=== PATIENT | female | born 1970 | race Two or more races ===

== ENCOUNTER 2024-03-11 11:53 | Inpatient (IN) | payer MEDICAID, OTHER ==
[~2024-03-11] VITALS: Ht 154.9 cm; Wt 62.1 kg
[2024-03-11 13:28] LABS: Basophils # (auto) 0.1 10 ^3/uL (0-0.2); Basophils % (auto) 0.9 % (0.0-2.0); Eosinophils # (auto) 0.2 10 ^3/uL (0-0.8); Eosinophils % (auto) 3.5 % (0.0-7.0); Hematocrit 39.7 % (36.0-46.0); Hemoglobin 13.1 g/dL (12.2-16.2); Lymphocytes # (auto) 0.9 10 ^3/uL (0.4-5.4); Lymphocytes % (auto) 16.3 % (10.0-50.0); Mean Corpuscular Hemoglobin 29.4 pg (28.0-32.0); Mean Corpuscular Volume 89.2 fL (80.0-100.0); Monocytes # (auto) 0.5 10 ^3/uL (0-1.3); Monocytes % (auto) 9.1 % (0.0-12.0); Neutrophils % (auto) 70.2 % (37.0-80.0); Nucleated Red Blood Cells % 0.1 %; Platelet Count (auto) 149 10^3/uL (140-450); Red Blood Cells 4.45 10^6/uL (4.0-5.20); Red Cell Distribution Width 14.6 % (11.8-14.3); White Blood Cell 5.7 10^3/uL (4.4-10.8)
[2024-03-11 13:39] LABS: Chloride 108 mmol/L (98-107); Potassium 4.1 mmol/L (3.5-5.1); Sodium 141 mmol/L (136-145)
[2024-03-11 13:40] LABS: Anion Gap 8 (5-15); Calcium 10.1 mg/dL (8.7-10.4); Carbon Dioxide 25 mmol/L (20-31)
[2024-03-11 13:45] LABS: BUN/Creatinine Ratio 14.1 (10.0-20.0); Blood Urea Nitrogen 13 mg/dL (9-23); Glucose 92 mg/dL (74-106)
[2024-03-11 14:58] LABS: Urine Bacteria None Seen /hpf (None Seen)
[2024-03-11 15:22] LABS: Urine Blood Negative /uL (Negative); Urine Clarity Clear (Clear); Urine Color Colorless (Yellow); Urine Protein, UAD 1+ (Negative); Urine Specific Gravity 1.005 (1.001-1.035); Urine Urobilinogen Normal (Negative); Urine WBC <1 /hpf (0 - 5); Urine pH 6.5 (5.0-9.0)
[2024-03-11] MEDS: FUROSEMIDE 40 MG/4 ML VIAL IV ONE (16:14)
[2024-03-11] MEDS ORDERED: ONDANSETRON HCL 4 MG/2 ML VIAL IV PRN (21:45)
[2024-03-11] MEDS ORDERED: ACETAMINOPHEN 325 MG TAB PO PRN (21:45)
[2024-03-11] MEDS ORDERED: TEMAZEPAM 15 MG CAP PO PRN (21:45)
[2024-03-11 22:05] VITALS: PULSE 78; RESP 16; O2SAT 98
[2024-03-12] VITALS (9 sets, daily range): BP systolic 103–147; BP diastolic 45–75; PULSE 70–90; RESP 16–21; TEMP 97.4–98.6; O2SAT 93–99
[2024-03-12] MEDS: ALBUMIN 25% 50 ML IV ONE (00:27)
[2024-03-12] MEDS ORDERED: METO-289 PO (00:35)
[2024-03-12] MEDS ORDERED: LOSA-534 PO (00:35)
[2024-03-12] MEDS ORDERED: MULT-1054 PO (00:35)
[2024-03-12] MEDS ORDERED: ALEN70TA74 PO (00:35)
[2024-03-12] MEDS ORDERED: ANAS1TAB52 PO (00:35)
[2024-03-12] MEDS: hydrALAZINE HCL 20 MG/ML VL IV ONE (01:37)
[2024-03-12] MEDS: HYDROcodone-ACET 5/325MG TAB PO PRN (09:10)
[2024-03-12] MEDS: METOPROLOL SUCCINATE XL 50 MG TAB PO SCH (09:10)
[2024-03-12 09:31] LABS: Chloride 106 mmol/L (98-107); Sodium 141 mmol/L (136-145)
[2024-03-12 09:32] LABS: Anion Gap 7 (5-15); Calcium 10.1 mg/dL (8.7-10.4); Carbon Dioxide 28 mmol/L (20-31)
[2024-03-12 09:37] LABS: Blood Urea Nitrogen 9 mg/dL (9-23); Glucose 151 mg/dL (74-106)
[2024-03-12 10:17] LABS: Basophils # (auto) 0 10 ^3/uL (0-0.2); Basophils % (auto) 0.8 % (0.0-2.0); Eosinophils # (auto) 0.1 10 ^3/uL (0-0.8); Eosinophils % (auto) 1.9 % (0.0-7.0); Hemoglobin 13.8 g/dL (12.2-16.2); Lymphocytes # (auto) 0.8 10 ^3/uL (0.4-5.4); Lymphocytes % (auto) 13.6 % (10.0-50.0); Mean Corpuscular Hemoglobin 29.1 pg (28.0-32.0); Mean Corpuscular Volume 88.2 fL (80.0-100.0); Monocytes # (auto) 0.4 10 ^3/uL (0-1.3); Monocytes % (auto) 6.9 % (0.0-12.0); Neutrophils # (auto) 4.6 10 ^3/uL (1.6-8.6); Neutrophils % (auto) 76.8 % (37.0-80.0); Nucleated Red Blood Cells % 0.1 %; Platelet Count (auto) 180 10^3/uL (140-450); Red Blood Cells 4.76 10^6/uL (4.0-5.20); Red Cell Distribution Width 14.8 % (11.8-14.3)
[2024-03-12] MEDS: FUROSEMIDE 40 MG TAB PO SCH (10:19)
[2024-03-12] MEDS: ENOXAPARIN SOD 40 MG/0.4 ML SYRINGE SC SCH (10:49)
[2024-03-13] VITALS (8 sets, daily range): BP systolic 109–149; BP diastolic 43–67; PULSE 62–84; RESP 14–20; TEMP 97–97.9; O2SAT 90–100
[2024-03-14 01:00] VITALS: BP 137/71; PULSE 85; RESP 20; TEMP 97.5; O2SAT 94
[2024-03-14 05:00] VITALS: BP 120/91; PULSE 72; RESP 20; TEMP 97.6; O2SAT 98
[2024-03-14 08:00] VITALS: PULSE 65; RESP 18; O2SAT 97
[2024-03-14 09:00] VITALS: BP 149/60; PULSE 79; RESP 22; TEMP 97.9; O2SAT 97
[2024-03-14] MEDS ORDERED: LEVO500T91 PO (11:08)
[2024-03-14 13:00] VITALS: BP 118/57; PULSE 70; RESP 22; TEMP 97.7; O2SAT 97
== END 2024-03-14 16:15 | disposition home or self-care (01) | DRG 139 ==
LOC: ER 11:53 → WEST WING 21:39 → OVERFLOW 21:39 → WEST WING 23:28
PROVIDERS: ADMIT Nurse Practitioner; ATTEND Family Medicine
DX: J12.9 Viral pneumonia, unspecified (principal); I11.0 Hypertensive heart disease with heart failure; I50.32 Chronic diastolic (congestive) heart failure; M81.0 Age-related osteoporosis without current pathological fracture; Z85.3 Personal history of malignant neoplasm of breast; Z85.43 Personal history of malignant neoplasm of ovary; Z92.21 Personal history of antineoplastic chemotherapy; Z90.12 Acquired absence of left breast and nipple; Z90.721 Acquired absence of ovaries, unilateral; Z79.899 Other long term (current) drug therapy
CPT/HCPCS: 36415; 71045; 71250; 80048; 81001; 83880; 84484; 85025; 93306; 93970; G0378

== ENCOUNTER 2025-04-14 10:17 | Emergency (ER) | payer MEDICAID ==
[~2025-04-14] VITALS: Ht 149.9 cm; Wt 72.2 kg
[~2025-04-14 10:17] MED LIST: ALEN70TA74 PO; ANAS1TAB52 PO; LEVO500T91 PO; LOSA-534 PO; METO-289 PO; MULT-1054 PO
--- NOTE | 2025-04-14 11:25 | ED.PDOC ---
History of Present Illness HPI Comments 54-year-old female presents to the ER with caregiver and a prior medical history of cancer, hypertension, osteoporosis: Surgical history of cataract surgery, mastectomy surgery, left oophorectomy surgery, craniotomy surgery in the chief complaint of extremity swelling. Caregiver who is Frisian-speaking reports that the patient has been having lower extremity swelling for the past month, and upper extremity swelling for the past week. Caregiver took the patient to [facility] where she was informed that the patient is allergic to one of the medication that she is taking and was prescribed Lasix but currently ran out her medications and came to the ER asking for a refill. Denies any other symptoms at this time. Denies chills, fever, N/V/D, SOB, CP. No other associated symptoms, modifiers, recent injuries or sick contacts present at this time. Chief Complaint: Extremity Swelling Time Seen by MD: 11:00 Primary Care Provider: UNKNOWN Reviewed Notes: Nurses Notes, Medications, Allergies Allergies: Coded Allergies: Hydrochlorothiazide (Verified Allergy, Severe, 04/14/25) Home Meds Active Scripts Levofloxacin Hemihydrate (LEVAQUIN 500 MG) 500 Mg Tab, 1 TAB PO DAILY, #7 TAB Prov:NATALIE SHETH MD 03/14/24 Reported Medications Alendronate Sodium (Alendronate Sodium) 70 Mg Tab, 1 TAB PO QWEEKLY, #4 TAB 3 Refills 03/12/24 Losartan Potassium (Losartan Potassium) 50 Mg Tab, 1 TAB PO DAILY, #30 TAB 5 Refills 03/12/24 Anastrozole (Arimidex) 1 Mg Tab, 1 TAB PO DAILY, #90 TAB 1 Refill 03/12/24 Metoprolol Succinate (Metoprolol Succinate Er) 50 Mg Tab, 1 TAB PO DAILY, #30 TAB 5 Refills 03/12/24 Multiple Vitamins W/ Minerals (Womens Multivitamin) 1 Tab Tab, 1 TAB PO, TAB 03/12/24 Information Source: 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, 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) Mode of Arrival: Ambulatory Severity: Moderate Timing: Weeks Duration: Since onset Prehospital treatment: None Past Medical History PAST MEDICAL HISTORY: Cancer, HTN Past Medical History (Other): Osteoporosis Surgical History (Other): Cataract surgery, mastectomy surgery, left oophorectomy surgery, craniotomy surgery PRODUCTION CONTROL SPECIALIST History: No Pertinent PRODUCTION CONTROL SPECIALIST History Family History Family History: Reviewed,noncontributory to illness, Unknown Social History Smoker: Non-Smoker Alcohol: Denies ETOH Use Drugs: Denies Drug Use Lives In: Home Constitutional: denies: chills, diaphoresis, fatigue, fever, malaise, sweats, weakness, others EENTM: denies: blurred vision, double vision, ear bleeding, ear discharge, ear drainage, ear pain, ear ringing, eye pain, eye redness, hearing loss, mouth pain, mouth swelling, nasal discharge, nose bleeding, nose congestion, nose pain, photophobia, tearing, throat pain, throat swelling, voice changes, others Respiratory: denies: cough, hemoptysis, orthopnea, SOB at rest, shortness of breath, SOB with excertion, stridor, wheezing, others Cardiovascular: reports: edema (Bilateral lower extremity and upper extremity); denies: chest pain, dizzy spells, diaphoresis, Dyspnea on exertion, irregular heart beat, left arm pain, lightheadedness, palpitations, PND, syncope, others Gastrointestinal: denies: abdomen distended, abdominal pain, blood streaked bowels, constipated, diarrhea, dysphagia, difficulty swallowing, hematemesis, melena, nausea, poor appetite, poor fluid intake, rectal bleeding, rectal pain, vomiting, others Genitourinary: denies: abnormal vagina bleeding, burning, dyspareunia, dysuria, flank pain, frequency, hematuria, incontinence, pain, , vagina discharge, urgency, others Neurological: denies: dizziness, fainting, headache, left sided numbness, left sided weakness, numbness, paresthesia, pre-existing deficit, right sided numbness, right sided weakness, seizure, speech problems, tingling, tremors, weakness, others Musculoskeletal: denies: back pain, gout, joint pain, joint swelling, muscle pain, muscle stiffness, neck pain, others Integumetry: denies: bruises, change in color, change in hair/nails, dryness, laceration, lesions, lumps, rash, wounds, others Allergic/Immunocompromised: denies: Difficulty Healing, Frequent Infections, Hives, Itching, others Hematologic/Lymphatic: denies: anemia, blood clots, easy bleeding, easy bruising, swollen glands, others Endocrine: denies: excessive hunger, excessive sweating, excessive thirst, excessive urination, flushing, intolerance to cold, intolerance to heat, unexplained weight gain, unexplained weight loss, others Psychiatric: denies: anxiety, bipolar disorder, depression, hopeless, panic disorder, schizophrenia, sleepless, suicidal, others All Other Systems: Reviewed and Negative Physical Exam General Appearance: No Apparent Distress, Normal HEENT: Normal ENT Inspection, Pharynx Normal, TMs Normal Neck: Full Range of Motion, Non-Tender, Normal, Normal Inspection Respiratory: Chest Non-Tender, Lungs Clear, No Accessory Muscle Use, No Respiratory Distress, Normal Breath Sounds Cardiovascular: No Edema, No JVD, No Murmur, No Gallop, Normal Peripheral Pulses, Regular Rate/Rhythm Breast Exam: Deferred Gastrointestinal: No Organomegaly, Non Tender, No Pulsatile Mass, Normal Bowel Sounds, Soft Genitalia: Deferred Pelvic: Deferred Rectal: Deferred Extremities: No calf tenderness, Normal capillary refill, Normal inspection, Normal range of motion, Non-tender, No pedal edema Musculoskeletal : Apperance: Normal Neurologic: Alert, custodial maintenance worker II-XII nml as Tested, No Motor Deficits, Normal Affect, Normal Mood, No Sensory Deficits Cerebellar Function: Normal Reflexes: Normal Skin: Dry, Normal Color, Warm Lymphatic: No Adenopathy Was a procedure done? Was a procedure done?: No Differential Dx Considerations may include: CHF, peripheral edema, cellulitis, DVT X-Ray, Labs, Meds, VS Vital Signs Date Time Temp Pulse Resp B/P (MAP) Pulse Ox O2 Delivery O2 Flow Rate FiO2 04/14/25 10:18 97.6 88 15 192/87 99 97.6 Lab Test 04/14/25 11:11 Range/Units White Blood Count 7.1 4.4-10.8 10^3/uL Red Blood Count 4.52 4.0-5.20 10^6/uL Hemoglobin 13.6 12.2-16.2 g/dL Hematocrit 40.7 36.0-46.0 % Mean Corpuscular Volume 90.2 80.0-100.0 fL Mean Corpuscular Hemoglobin 30.0 28.0-32.0 pg Mean Corpuscular Hemoglobin Concent 33.3 32.0-36.0 g/dL Red Cell Distribution Width 14.3 11.8-14.3 % Platelet Count 167 140-450 10^3/uL Mean Platelet Volume 8.2 6.9-10.8 fL Neutrophils (%) (Auto) 64.8 37.0-80.0 % Lymphocytes (%) (Auto) 21.0 10.0-50.0 % Monocytes (%) (Auto) 7.4 0.0-12.0 % Eosinophils (%) (Auto) 6.1 0.0-7.0 % Basophils (%) (Auto) 0.7 0.0-2.0 % Neutrophils # (Auto) 4.6 1.6-8.6 10 ^3/uL Lymphocytes # (Auto) 1.5 0.4-5.4 10 ^3/uL Monocytes # (Auto) 0.5 0-1.3 10 ^3/uL Eosinophils # (Auto) 0.4 0-0.8 10 ^3/uL Basophils # (Auto) 0 0-0.2 10 ^3/uL Nucleated Red Blood Cells 0.2 % Sodium Level 142 136-145 mmol/L Potassium Level 4.4 3.5-5.1 mmol/L Chloride Level 105 98-107 mmol/L Carbon Dioxide Level 25 20-31 mmol/L Anion Gap 12 5-15 Blood Urea Nitrogen 20 9-23 mg/dL Creatinine 1.22 H 0.550-1.02 mg/dL Glomerular Filtration Rate Calc 53 >90 mL/min BUN/Creatinine Ratio 16.4 10.0-20.0 Serum Glucose 91 74-106 mg/dL Calcium Level 9.9 8.7-10.4 mg/dL B-Type Natriuretic Peptide 85.17 0-100 pg/mL X-Ray, Labs, Meds, VS Comment Imaging was reviewed by this provider, there is no obvious pathological or acute disease process. Pending radiology review Labs were reviewed by this provider, no abnormalities Vital signs reviewed by this provider, clinically stable Continue taking Lasix as prescribed. Time of 1ST Reevaluation: 11:30 Reevaluation 1ST: Unchanged Patient Education/Counseling: Diagnosis, Treatment, Prognosis, Need For Follow Up (Follow up with PCP at next available appointment. Return emergency department if symptoms worsen.) Family Education/Counseling: No Family Present SEPSIS Sepsis Screen Date sepsis recognized/suspect: Apr 14, 2025 Time Sepsis recognized/suspect: 1021 Recent Procedure: No On Antibiotic Therapy: No Respiratory Rate >20: No Heart Rate >90: No Temp<36 C (96.8 F) or >38.3 C: No SBP <90 or MAP <65 mmHG: No New Acute Mental Status Change: No Is the patient on CPAP, BIPAP,: No Physician Orders Chest Xray 1 View (04/14/25 11:04) Vital Signs Date Time Temp Pulse Resp B/P (MAP) Pulse Ox O2 Delivery O2 Flow Rate FiO2 04/14/25 10:18 97.6 88 15 192/87 99 97.6 Laboratory Tests Test 04/14/25 11:11 White Blood Count 7.1 10^3/uL (4.4-10.8) Departure 1 Departure Time of Disposition: 12:24 Impression: Primary Impression: Lower extremity edema Disposition: HOME / SELF CARE / HOMELESS Condition: Stable e-Prescriptions Furosemide (Lasix) 40 Mg Tab 40 MG PO DAILY for 30 Days, #30 TAB Prov: MARCE WASHINGTON 04/14/25 Discharged With: Self Critical Care Note Critical Care Time?: No Stability Stability form required: No I personally scribed for MARCE WASHINGTON ([email or web address]) on 04/14/25 at 11:25. Electronically submitted by [facility] ([email or web address]). MARCE WASHINGTON Apr 14, 2025 11:25
[2025-04-14 11:37] LABS: Hematocrit 40.7 % (36.0-46.0); Hemoglobin 13.6 g/dL (12.2-16.2); Mean Corpuscular Hemoglobin 30.0 pg (28.0-32.0); Mean Corpuscular Volume 90.2 fL (80.0-100.0); Nucleated Red Blood Cells % 0.2 %
[2025-04-14 11:46] LABS: Chloride 105 mmol/L (98-107); Potassium 4.4 mmol/L (3.5-5.1); Sodium 142 mmol/L (136-145)
[2025-04-14 11:47] LABS: Anion Gap 12 (5-15); Calcium 9.9 mg/dL (8.7-10.4); Carbon Dioxide 25 mmol/L (20-31)
[2025-04-14 11:52] LABS: BUN/Creatinine Ratio 16.4 (10.0-20.0); Blood Urea Nitrogen 20 mg/dL (9-23); Glucose 91 mg/dL (74-106)
--- NOTE | 2025-04-14 11:59 | DVH ---
CHEST RADIOGRAPH Indication: swelling Technique: Single frontal view of the chest was obtained Comparison: XY CHEST PORTABLE on DOS: 03/11/24 FINDINGS: Lines and Tubes: None Lungs: No focal consolidation. Pleura: No effusion. No pneumothorax. Cardiomediastinal contours: Unremarkable Bones: No acute osseous abnormality. IMPRESSION: No acute cardiopulmonary disease.
[2025-04-14] MEDS ORDERED: FURO1TAB31 PO (12:26)
[2025-04-14 12:38] VITALS: BP 174/66; PULSE 94; RESP 20; TEMP 98.2; O2SAT 100
== END 2025-04-14 12:53 | disposition home or self-care (01) ==
LOC: ER 10:17
DX: R60.0 Localized edema (principal); I10 Essential (primary) hypertension; Z79.899 Other long term (current) drug therapy; Z90.12 Acquired absence of left breast and nipple; Z90.721 Acquired absence of ovaries, unilateral; Z98.42 Cataract extraction status, left eye; Z98.890 Other specified postprocedural states
CPT/HCPCS: 36415; 71045; 80048; 83880; 85025